=== PATIENT | female | born 1950 | race Two or more races ===

== ENCOUNTER 2018-04-16 14:01 | Outpatient (CLI) | payer OTHER | END 2018-04-16 14:07 | disposition home or self-care (01) | LOC: RAD 501 14:01 | DX: M23.301 Other meniscus derangements, unspecified lateral meniscus, left knee (principal); M23.304 Other meniscus derangements, unspecified medial meniscus, left knee; M89.8X0 Other specified disorders of bone, multiple sites; I10 Essential (primary) hypertension; M54.5 Low back pain; E78.89 Other lipoprotein metabolism disorders; E55.9 Vitamin D deficiency, unspecified; E03.8 Other specified hypothyroidism; G62.89 Other specified polyneuropathies; K21.9 Gastro-esophageal reflux disease without esophagitis; F41.8 Other specified anxiety disorders; R92.0 Mammographic microcalcification found on diagnostic imaging of breast ==

== ENCOUNTER 2018-04-23 12:39 | Outpatient (CLI) | payer OTHER | END 2018-04-23 12:57 | disposition home or self-care (01) | LOC: MRI 12:39 | DX: M25.562 Pain in left knee (principal) | CPT/HCPCS: 73718 ==

== ENCOUNTER 2023-05-09 09:53 | Outpatient (CLI) | payer OTHER | END 2023-05-09 09:58 | disposition home or self-care (01) | LOC: RX STUDY 09:53 | PROVIDERS: ATTEND Internal Medicine Gastroenterology | DX: R19.5 Other fecal abnormalities (principal); R13.14 Dysphagia, pharyngoesophageal phase; M06.80 Other specified rheumatoid arthritis, unspecified site ==

== ENCOUNTER 2024-11-01 23:19 | Emergency (ER) | payer OTHER ==
[~2024-11-01] VITALS: Ht 170.2 cm; Wt 84.4 kg
[2024-11-02] MEDS ORDERED: ONDANSETRON HCL 2 MG/ML VIAL IV STA (00:47)
[2024-11-02] MEDS ORDERED: FAMOTIDINE/PF 20 MG/2 ML VIAL IV PUSH STA (00:48)
[2024-11-02] MEDS ORDERED: ONDANSETRON HCL 2 MG/ML VIAL ONE (00:56)
[2024-11-02] MEDS ORDERED: FAMOTIDINE/PF 20 MG/2 ML VIAL ONE (00:56)
[2024-11-02 01:15] LABS: URINE APPEARANCE Cloudy; URINE BACTERIA 1777.0 uL (0.0-1933); URINE BILIRRUBIN Negative (NEGATIVE); URINE BLOOD Trace; URINE COLOR Yellow; URINE EPITHELIAL CELLS 36.4 uL (0.0-38.8); URINE GLUCOSE Negative (NEGATIVE); URINE KETONE Negative (NEGATIVE); URINE LEUKOCYTE Large; URINE NITRATE Negative; URINE PROTEIN Negative (NEGATIVE); URINE RBC 2.6 uL (0.0-20.8); URINE UROBILINOGEN 0.2 E.U./dl; URINE WBC 1103.0 uL (0.0-23.2)
[2024-11-02 01:17] LABS: BASO % 0.5 % (0.1-1.2); EOS # 0.68 (0.04-0.54); EOS % 7.2 % (0.7-7.0); LYMPH # 3.85 (1.18-3.74); LYMPH % 40.7 % (19.3-53.1); MEAN PLATELET VOLUME 10.40 fl (9.4-12.4); MONO # 0.68 (0.24-0.82); MONO % 7.2 % (4.7-12.5); NEUT # 4.19 (1.56-6.13); NEUT % 44.3 % (34.0-71.1); RED CELL DISTRIBUTION WIDTH 13.9 % (11.6-14.4)
[2024-11-02 01:29] LABS: INR 0.99
[2024-11-02 01:33] LABS: ALT/SGPT 17.0 U/L (12-78); AST/SGOT 13.0 U/L (15-37); BILIRUBIN TOTAL 0.37 mg/dL (0.3-1.2); BUN CREA RATIO 13.0 (7.0-25.0); CREATININE SERUM 0.78 mg/dL (0.55-1.02); GFR 72.0; GLOBULINA 4.3 G/DL (2.4-3.5); GLUCOSE FASTING 117.0 mg/dL (65-100); OSMOLALITY SERUM 285.0 MOSM/KG (275-295)
[2024-11-02 01:43] LABS: URINE CAST 0.14 uL (0.0-1.40)
[2024-11-02] MEDS ORDERED: NIFEDIPINE 10 MG CAPSULE PO STA (03:06)
[2024-11-02] MEDS ORDERED: NIFEDIPINE 10 MG CAPSULE PO ONE (03:33)
[2024-11-02] MEDS ORDERED: CEPHALEXIN500 MG PO (05:33)
[2024-11-02] MEDS ORDERED: DICLOFENAC POTA50 MG PO (05:33)
== END 2024-11-02 06:03 ==
LOC: ER 23:19
PROVIDERS: General Practice
DX: N39.0 Urinary tract infection, site not specified (principal); R42 Dizziness and giddiness; Z91.199 Patient's noncompliance with other medical treatment and regimen due to unspecified reason; I10 Essential (primary) hypertension
CPT/HCPCS: 36415; 71045; 93005; 96365; 99283; J2405; J3490